=== PATIENT | male | born 1990 | race African-American/Black ===

== ENCOUNTER 2017-04-12 23:10 | Emergency (ER) | payer OTHER ==
[~2017-04-12] VITALS: Ht 172.7 cm; Wt 71.2 kg
--- NOTE | 2017-04-12 23:10 | NUR ---
BIBA TO ER BED 7
[2017-04-12 23:15] VITALS: BP 124/68
--- NOTE | 2017-04-12 23:26 | NUR ---
TAKE PT. TO CT
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
--- NOTE | 2017-04-13 | NUR ---
PT. BACK FROM CT
--- NOTE | 2017-04-13 00:35 | NUR ---
Patient discharged with v/s stable. Written and verbal after care instructions given and explained. Patient alert, oriented and verbalized understanding of instructions. Ambulatory with steady gait. All questions addressed prior to discharge. ID band removed. Patient advised to follow up with PMD. Rx of NAPROSYN 500 MG given. Patient educated on indication of medication including possible reaction and side effects. Opportunity to ask questions provided and answered.
[2017-04-13 00:39] VITALS: BP 134/71
== END 2017-04-13 00:35 | disposition home or self-care (01) ==
LOC: MED 23:10
DX: S16.1XXA Strain of muscle, fascia and tendon at neck level, initial encounter (principal); S09.90XA Unspecified injury of head, initial encounter; V49.9XXA Car occupant (driver) (passenger) injured in unspecified traffic accident, initial encounter; Y93.I9 Activity, other involving external motion; Y92.89 Other specified places as the place of occurrence of the external cause; Y99.8 Other external cause status
CPT/HCPCS: 70450; 72125; 99284